=== PATIENT | male | born 1960 | race African-American/Black ===

== ENCOUNTER 2020-12-30 08:39 | Outpatient (REF) | payer OTHER, SELFPAY ==
[2020-12-30 10:24] LABS: Alanine Aminotransferase 12 U/L (0-40); Albumin Level 4.4 g/dL (3.5-5.0); Alkaline Phosphatase 42 U/L (39-117); Anion Gap 11 (12-20); Aspartate Amino Transferase 20 U/L (5-37); Bilirubin Total 0.8 mg/dL (0.0-1.0); Blood Urea Nitrogen 14 mg/dL (9-16); Calcium 9.9 mg/dL (8.4-10.2); Carbon Dioxide 29 mmol/L (22-29); Chloride 106 mmol/L (96-108); Cholesterol 164 mg/dL; Estimated Glomerular Filt Rate > 60; Glucose Fasting 91 mg/dL (60-99); HDL Cholesterol 46 mg/dL; LDL Cholesterol Calculated 100 mg/dl; Potassium 4.2 mmol/L (3.3-5.1); Sodium 142 mmol/L (135-145); Total Protein 6.8 g/dL (6.5-8.0); Triglycerides 91 mg/dL
[2021-01-04 13:32] LABS: Vitamin D 25-OH, D2 <4 ng/mL; Vitamin D 25-OH, D3 28 ng/mL; Vitamin D 25-OH, Total 28 ng/mL (30-100)
== END 2020-12-30 08:40 | disposition home or self-care (01) ==
LOC: HO.LAB 08:39
PROVIDERS: PCP Internal Medicine; Visit Provider Internal Medicine
DX: I10 Essential (primary) hypertension (principal); E78.5 Hyperlipidemia, unspecified; E55.9 Vitamin D deficiency, unspecified
CPT/HCPCS: 36415; 80053; 80061; 82306

== ENCOUNTER 2021-01-13 14:18 | Outpatient (REF) | payer OTHER, SELFPAY ==
--- NOTE | ~2021-01-13 | MM_ITS ---
EXAMINATION: MM DIAGNOSTIC DIGITAL BREAST TOMOSYNTHESIS, BILATERAL US DIAGNOSTIC ULTRASOUND BREAST (AXILLA), LEFT CLINICAL INFORMATION: 60-year-old male with small superficial palpable nodule left axilla. COMPARISON: None (current study represents initial baseline exam). TECHNIQUE: Digital breast tomosynthesis is performed in both the craniocaudal and mediolateral oblique views along with computer-aided detection (CAD). Synthesized 2D images are generated from the tomosynthesis. Additional left MLO view is provided. Ultrasound left breast/axilla is targeted to the area of clinical concern. Patient is able to point to the area at time of imaging. Grayscale imaging and color Doppler are performed without and with harmonics. FINDINGS: The breasts are almost entirely fatty (ACR BI-RADS breast composition Category a). The stromal markings are unremarkable. No gynecomastia, mass, or architectural abnormality. No skin thickening or abnormal calcifications. There is a symptom marker at site of clinical concern, corresponding to the left axilla approximately 14 cm from the nipple. The additional MLO view with symptom marker demonstrates a small superficial smooth nodule approximately 5 x 9 mm in size. Ultrasound targeted to the palpable area of concern demonstrates a smooth oval intradermal lesion measuring approximately 0.5 x 0.9 cm. There is no appreciable visible stalk to the skin surface. No subdermal extension. No associated color flow or surrounding hyperemia. Lymph node left axilla demonstrates normal reji architecture with no cortical thickening or abnormal color flow. There is no edema tracking in the soft tissue planes. Results are discussed with the patient at time of visit. The palpable finding is an intradermal lesion most likely sebaceous cyst or other epidermal cyst. This would be amenable to surgical excision if persistent or enlarging. MM/MM tomosynthesis diagnostic BI IMPRESSION: 1. Intradermal lesion left axilla 5 x 9 mm corresponding to area of palpable concern, likely sebaceous cyst or other epidermal cyst. 2. Normal mammography. No gynecomastia or focal lesion breasts. ASSESSMENT: BI-RADS 2: Benign RECOMMENDATION: Patient should be managed based on the clinical impression. If the intradermal lesion is persistent or enlarging, surgical consult may be considered for simple excision.
== END 2021-01-13 14:19 | disposition home or self-care (01) ==
LOC: HO.MAMMO 14:18
PROVIDERS: Visit Provider Internal Medicine
DX: R22.32 Localized swelling, mass and lump, left upper limb (principal)
CPT/HCPCS: 76642; 77062; 77066

== ENCOUNTER → 2022-05-04 08:23 | Outpatient (BNVA) | payer OTHER, SELFPAY | PROVIDERS: PCP Internal Medicine; Visit Provider Surgery | DX: R22.32 Localized swelling, mass and lump, left upper limb (principal); F17.210 Nicotine dependence, cigarettes, uncomplicated | CPT/HCPCS: 99202 ==

== ENCOUNTER → 2022-05-21 07:56 | Outpatient (BNVA) | payer OTHER, SELFPAY | PROVIDERS: PCP Internal Medicine; Referring Provider Internal Medicine; Visit Provider Surgery | DX: L72.3 Sebaceous cyst (principal) | CPT/HCPCS: 11401; 99212 ==

== ENCOUNTER 2022-06-06 11:24 | Emergency (ER) | payer OTHER, SELFPAY ==
[2022-06-06 12:04] VITALS: BP 150/103; PULSE 89; RESP 18; TEMP 36.6; O2SAT 96; BMI 22.1
--- NOTE | 2022-06-06 12:09 | ED.ALLEREA ---
HPI - Allergic Reaction General Chief complaint: General Medical Stated complaint: Rash/Allergic reaction? Time Seen by Provider: 06/06/22 12:15 Source: patient Mode of arrival: ambulatory Limitations: no limitations History of Present Illness HPI narrative: 61-year-old male with a past medical history of depression is presenting to the ED with complaints of right facial redness/swelling that started yesterday worse today. He reports that it is very itchy and he has noticed some clear/yellow colored drainage from the site of his right face. Reports that he is also having a rash to his right upper arm that is also new since this right facial redness/swelling started. He reports that he did shave last week. He did not use anyone shaver and did not use any dirty Arron. He reports his significant other also recently dyed her hair and he is unsure if this is related. He denies any new substances himself. He denies any fevers, trouble swallowing or breathing, changes in vision or pain with movement of the eyes or ever having this rash before any other symptoms complaints or concerns at this time. MD complaint: facial swelling Onset (ago): day(s) (2) Exposure: unknown Symptoms: rash, itching and facial swelling Severity: mild Treatment prior to arrival: none Previous Allergic Reaction History: none Related Data Previous Rx's Medication Instructions Recorded cholecalciferol (vitamin D3) 25 25 mcg PO DAILY 90 days #90 caps 04/27/21 mcg (1,000 unit) capsule cephalexin 500 mg capsule 500 mg PO Q6H 10 days #40 caps 06/06/22 doxycycline monohydrate 100 mg 100 mg PO BID 10 days #20 tabs 06/06/22 tablet hydrocortisone 2.5 % topical 1 appl topical QD-TID PRN skin 06/06/22 ointment irritation #454 grams mupirocin 2 % topical ointment 1 appl topical TID #22 grams 06/06/22 prednisone 20 mg tablet 40 mg PO DAILY inflammation 5 days 06/06/22 #10 tabs Allergies Allergy/AdvReac Type Severity Reaction Status Date / Time acetaminophen [From Percocet] Allergy Intermediate sweats, Verified 05/27/22 10:56 chills, unvoluntary muscle movements oxycodone [From Percocet] Allergy Intermediate sweats, Verified 05/27/22 10:56 chills, unvoluntary muscle movements Review of Systems Review of Systems: Constitutional : No Fever, No Chills , no body aches, no recent illness Head/Face: No facial swelling, No facial redness ENT/Mouth : No oral/throat swelling, No Hoarseness, No Swallowing Difficulty Eyes: No Eye Pain, No Swelling, No Redness Cardiovascular : No Chest Pain, No SOB, No palpitations Respiratory : No Cough, No Sputum, No Wheezing, No Smoke Exposure, No Dyspnea Gastrointestinal : No Nausea, No Vomiting, No Diarrhea, No abdominal Pain Genitourinary : No Dysuria, No Urinary Frequency, No Hematuria Musculoskeletal : No joint pain, No Myalgias, No Joint Swelling Skin : No Skin Lesions, positive rash Neuro : No Weakness, No Numbness, No Headache, No dizziness, No tingling Psych : No Anxiety/Panic, No Depression Heme/Lymph: No Bruising, No Lymphadenopathy Endocrine : No Polyuria, No Polydipsia Denies changes in lotions or detergents. Denies new medications or any changes in medications. Denies drainage from rash. Denies any recent sick contacts or recent travel. Yes all other systems are reviewed and are negative [facility] Past Medical History Attestation statement: The following information was validated with the patient. Source: old records reviewed and nursing notes reviewed Medical History Depression Essential hypertension Hypovitaminosis D Mass of left axilla Surgical History No pertinent past surgical history Family History Family History Mother No problems noted. Father Cancer Social History Social History Housing: House Alcohol intake: current Alcohol intake frequency: a few times a month Alcohol type: beer Patient Tobacco Use Status: Current everyday Tobacco user Tobacco use type: Cigarette Cigarettes Per Day: 4 e-Cigarette/Vaping Use: Never Used Second Hand Smoke Exposure: No Advance Directives: No Advance Directives Information Provided: No service: No Current occupational status: unemployed Cognitive needs: No Hearing needs: No Vision needs: Yes Physical Exam ED Vital Signs: Vital Signs - 24 hr 06/06/22 12:04 Temperature 97.8 F Pulse Rate 89 Respiratory Rate 18 Blood Pressure 150/103 H Pulse Oximetry 96 Oxygen Delivery Method Room Air BMI result Body Mass Index 22.1 vital signs have been reviewed as normal and appeared to be correct. Blood pressure normal. Heart rate normal. Respiration rate normal. Temperature normal. Oxygen saturation normal. Appearance: Alert. Oriented X3. No acute distress. Head: Normal external exam. Normocephalic. Atraumatic. Eyes: PERRLA. EOMI. Conjunctiva and sclera normal. Eyelids normal. Not consistent with orbital cellulitis. ENT: Pharynx normal. Uvula midline. Moist mucous membranes. No lesions/ulcerations or masses noted on the tongue. Normal voice. No trismus noted. No drooling noted. No muffled voice noted. Neck: Normal inspection. Neck supple. FROM. No adenopathy. Thyroid Normal. No tracheal deviation noted. No crepitus is noted. No meningeal signs. No neck mass noted. No signs of trauma noted. CVS: Normal heart rate and rhythm. Respiratory: No respiratory distress. Painless inspiration. Back: Full range of motion noted. Skin: Skin warm and dry. Normal skin color. Normal skin turgor. To the right side of the face patient has soft tissue swelling/erythema/mild serosanguineous drainage possibly consistent with cellulitis versus and a typo versus contact dermatitis. No streaking noted. No drainable abscess noted. To right upper arm patient has erythematous. to right upper arm pt c rash appears like contact dermatitis or eczema no purulent drainage or streaking noted to this rash. No additional rashes/lesions/lacerations noted. Extremities: Extremities exhibit normal range of motion and nontender. Neuro: Oriented X 3. No motor deficit. No sensory deficit. Reflexes normal. Normal steady gait. No focal neuro deficits noted. CN's II-XII intact bilaterally? Course Course Course Narrative: Patient most likely cellulitis/impetigo/contact dermatitis. Therefore will DC home with antibiotics and steroids along with topical steroids and topical antibiotics and instructions return if any new or worsening symptoms. I explained to him to the face he should use a topical antibiotics and the p.o. antibiotics and further arm he should use the topical steroids and the prednisone. He understands agrees with this plan. Discharge Plan Discharge Clinical Impression: Cellulitis of face, Contact dermatitis Patient Disposition: Home, Self-Care Instructions: Contact Dermatitis (ED), Cellulitis (ED) Prescriptions: New doxycycline monohydrate 100 mg tablet 100 mg PO BID 10 Days Qty: 20 0RF cephalexin 500 mg capsule 500 mg PO Q6H 10 Days Qty: 40 0RF prednisone 20 mg tablet 40 mg PO DAILY 5 Days Qty: 10 0RF hydrocortisone 2.5 % ointment 1 appl topical QD-TID PRN (Reason: skin irritation) Qty: 454 0RF mupirocin 2 % ointment 1 appl topical TID Qty: 22 0RF No Action cholecalciferol (vitamin D3) 25 mcg (1,000 unit) capsule 25 mcg PO DAILY 90 Days Qty: 90 3RF Referrals: Blanca Arnold MD [Primary Care Provider] - 2 days Interventions: ED Discharge Assessment Last Done: 06/06/22 12:19
== END 2022-06-06 12:42 | disposition home or self-care (01) ==
LOC: HO.ED 12:20
PROVIDERS: Emergency Provider Emergency Medicine; PCP Internal Medicine
DX: L03.211 Cellulitis of face (principal); L23.9 Allergic contact dermatitis, unspecified cause
CPT/HCPCS: 99282; 99283

== ENCOUNTER 2022-06-15 10:41 | Outpatient (REF) | payer OTHER, SELFPAY ==
--- NOTE | ~2022-06-15 | MM_ITS ---
EXAMINATION: MM DIAGNOSTIC DIGITAL BREAST TOMOSYNTHESIS, BILATERAL CLINICAL INFORMATION: Targeted left breast ultrasound. COMPARISON: Mammography: 01/13/2021. TECHNIQUE: Digital breast tomosynthesis is performed in both the craniocaudal and mediolateral oblique views along with computer-aided detection (CAD). Synthesized 2D images are generated from the tomosynthesis. Targeted left breast ultrasound. FINDINGS: The breasts are almost entirely fatty (ACR BI-RADS breast composition Category a). There are no significant masses, abnormal calcifications, or other abnormalities. Targeted left breast ultrasound did not demonstrate any suspicious cystic or solid masses. No region of abnormal distal sound shadowing. No edematous change within the parenchyma is noted. In the region of scar within the left axilla, there is some postsurgical change seen within the dermis. Results are discussed with the patient at time of visit. MM/MM tomosynthesis diagnostic BI IMPRESSION: No mammographic evidence of malignancy. Postsurgical change. ASSESSMENT: BI-RADS 2: Benign. RECOMMENDATION: Clinical followup.
== END 2022-06-15 10:42 | disposition home or self-care (01) ==
LOC: HO.MAMMO 10:41
PROVIDERS: PCP Internal Medicine; Visit Provider Internal Medicine
DX: R22.32 Localized swelling, mass and lump, left upper limb (principal)
CPT/HCPCS: 76642; 77062; 77066

== ENCOUNTER 2023-09-21 12:09 | Emergency (ER) | payer OTHER, SELFPAY ==
--- NOTE | ~2023-09-21 | XR_ITS ---
EXAMINATION: XR ELBOW, RIGHT CLINICAL INFORMATION: Pain and swelling COMPARISON: None available. TECHNIQUE: AP, lateral, and oblique views of the right elbow. FINDINGS: Swelling identified posterior medial elbow. No fracture or joint effusion. Alignment is anatomic. Joint spaces are maintained. XR/XR elbow RT 2V IMPRESSION: No acute bony pathology. Right elbow soft tissue swelling.
[2023-09-21 12:22] VITALS: BP 158/95; PULSE 78; RESP 20; TEMP 37.1; O2SAT 99; BMI 25.1
--- NOTE | 2023-09-21 12:32 | ED.GENADULT ---
HPI - General Adult General Chief complaint: Skin/Abscess/Foreign Body Stated complaint: Rash on face & elbows Time Seen by Provider: 09/21/23 12:31 Source: patient and family Mode of arrival: ambulatory Limitations: no limitations History of Present Illness HPI narrative: Patient is a 62-year-old male with history of hypertension, depression presenting to the emergency department with complaint of pruritic rash which began overnight. He reports rash is primarily to right elbow, has lesser rash to left elbow, also has rash to right side of his face. He states that he noted a small rash to his abdomen last week. He also feels that he has swelling to his right upper eyelid and notices the swelling in his field of vision. Describes the rash to right elbow as tender. He denies fevers, chills, body aches. States has had similar rashes in the past but has never seen a legal secretary receptionist. Unsure if he came into contact with any new chemicals at work. He did not take any avlk-tgr-oxrhndp medications or use any creams at home for his symptoms. complaint: rash Onset (ago): hour(s) Location: face, abdomen and upper extremity Severity: moderate Quality: other (Tender, pruritic) Exacerbating factors: movement Associated symptoms: denies other symptoms Treatments prior to arrival: none Related Data Previous Rx's Medication Instructions Recorded hydrocortisone 1 % topical cream 1 appl topical TID PRN skin 09/23/22 (Anti-Itch (hydrocortisone)) irritation 30 days #28.4 grams prednisone 20 mg tablet 20 mg PO DAILY #18 tabs 09/21/23 Allergies Allergy/AdvReac Type Severity Reaction Status Date / Time acetaminophen [From Percocet] Allergy Intermediate sweats, Verified 09/23/22 08:14 chills, unvoluntary muscle movements oxycodone [From Percocet] Allergy Intermediate sweats, Verified 09/23/22 08:14 chills, unvoluntary muscle movements Review of Systems Review of Systems: As per HPI. Yes all other systems are reviewed and are negative Constitutional: Constitutional: Reports as per HPI [facility] Past Medical History Medical History Depression Essential hypertension Hypovitaminosis D Mass of left axilla Surgical History No pertinent past surgical history Family History Family History Mother No problems noted. Father Cancer Social History Social History Housing: House Alcohol intake: current Alcohol intake frequency: a few times a month Alcohol type: beer Patient Tobacco Use Status: Current everyday Tobacco user Tobacco use type: Cigarette Cigarettes Per Day: 4 e-Cigarette/Vaping Use: Never Used Second Hand Smoke Exposure: No Advance Directives: No Advance Directives Information Provided: Yes service: No Current occupational status: unemployed Cognitive needs: No Hearing needs: No Vision needs: Yes Physical Exam ED Vital Signs: Vital Signs - 24 hr 09/21/23 12:22 Temperature 98.7 F Pulse Rate 78 Respiratory Rate 20 Blood Pressure 158/95 H Pulse Oximetry 99 Oxygen Delivery Method Room Air BMI result Body Mass Index 25.1 Vital signs have been reviewed and appear to be correct. Blood pressure elevated. Heart rate normal. Respiratory rate normal. Temperature normal. Oxygen saturation normal. Const General: cooperative, healthy appearing and no acute distress Orientation/consciousness: oriented to person, oriented to place, oriented to time and patient oriented x3 Limitations: no limitations HENMT Other: erythematous maculopapular rash to right side of face Head: Yes normocephalic and Yes atraumatic Ears: external ears normal General nose exam: Normal external nose present Face and sinus: Yes face symmetric Mouth: Normal oral and palatal mucosa present, lip normal, tongue normal, oropharynx normal and moist mucous membranes Throat: Yes uvula midline Eyes Eyelids: Yes eyelid abnormality (mild swelling R upper eyelid) Pupils: Equal, round and reactive pupils present Neck Neck: Yes normal visual inspection and Yes supple Resp Effort & Inspection: normal respiratory effort and able to speak in complete sentences Auscultation: clear to auscultation bilaterally Cardio Rate: regular rate Rhythm: regular rhythm Heart sounds: S1 normal heart sound present and S2 normal heart sound present GI Palpation (GI): Soft to palpation and nontender Auscultation: normoactive bowel sounds General: Yes no CVA tenderness Back/Spine/Pelvis Back: no CVA tenderness Skin General skin exam: elasticity normal and turgor normal Rashes: rashes noted (erythematous maculopapular rash draining serous fluid to elbows, face) maculopapular rash bilateral multiple locations Neuro General: oriented to person, oriented to place, oriented to time, patient oriented x3, moves all extremities, no focal motor deficits and CN's II-XI intact bilaterally Cranial nerves: Yes Equal, round and reactive pupils present Cognition (Neuro): normal cognition Extrem Other: erythematous maculopapular rash to bilateral elbows General: Yes full ROM, Yes no pedal edema and Yes no calf tenderness Right upper extremity: elbow/forearm Details: swelling (mild swelling to diffuse elbow), normal ROM and distal pulses intact; no unusual warmth Left upper extremity: elbow/forearm Details: normal ROM and other (erythematous maculopapular rash); no swelling and no unusual warmth Psych Mental Status: mental status grossly normal Affect: normal affect Thought process: Normal thought process present Course Course Course Narrative: This is an RME: Additional HPI, ROS, PE not included below will be deferred to primary provider. This is a 62-year-old male, with no known medical problems, presenting to the emergency department with itchy rash to his upper extremities. Also reporting swelling to his right elbow. And left lower abdomen. Works at a [employer] is unsure if he got to contact with chemicals yesterday. No fevers or chills. Further ER evaluation needed. Plan: Labs, x-ray Medical Decision Making Medical Decision Making MDM Narrative: Patient is a 62-year-old male with history of hypertension, depression presenting to the emergency department with complaint of pruritic rash which began overnight. On exam patient is awake, A+Ox3, BP elevated, VS otherwise WNL, afebrile, normal neurological exam without focal deficits, physical exam findings as above. Given reported symptoms and physical exam findings, initial differential includes contact dermatitis, atopic dermatitis, cellulitis. Less likely secondary syphillis. Not consistent with zoster, viral exanthem, scabies. Do not suspect DRESS, TEN/SJS, necrotizing fasciitis, TTP/DIC, meningococcemia, SSSS. Labs notable for no leukocytosis, mild anemia, normal ESR, slightly elevated CRP, no other significant abnormalities. X-ray notable for soft tissue swelling to right elbow. My interpretation is in agreement with the radiologist's interpretation. Given that patient has full range of motion, do not suspect septic joint. Will treat patient with taper dose of prednisone, advised him to cetirizine, topical unscented emollient cream such as Eucerin or Vanicream. Will refer patient to Dermatology for further evaluation of symptoms. RPR pending, will contact patient with any positive results. Return precautions discussed at bedside. Instructed patient to follow up with his primary care provider. Patient verbalized understanding of and agreement with plan. Differential Diagnosis Differential Diagnoses: The differential diagnosis associated with the presentation includes As per [facility]. Admission/Observation Consideration of admission/observation: Escalation of care including admission/observation considered Patient would have been admitted to the hospital had their work up had any findings where hospital admission was appropriate and their clinical presentation warranted hospital admission. Lab Data [facility] Lab Attestation statement: I reviewed the patient's lab results. As per HPI. 09/21/23 13:08 09/21/23 13:08 Labs: Lab Results 09/21/23 09/21/23 Range/Units 13:07 13:08 WBC 8.8 (4.8-10.8) X10*3/uL RBC 4.06 L (4.60-5.80) X10*6/uL Hgb 13.4 L (14.0-18.0) g/dl Hct 40.6 L (42.0-52.0) % MCV 100.0 H (80.0-98.0) fL MCH 33.0 (27.0-33.0) pg MCHC 33.0 (31.0-36.0) g/dl RDW 12.1 (11.0-16.0) % Plt Count 295 (160-400) X10*3/uL MPV 8.9 L (9.4-12.4) fL Immature Gran % (Auto) 0.3 (0.0-0.4) % Neut % (Auto) 69.9 (45-73) % Lymph % (Auto) 15.8 L (20-40) % Baca % (Auto) 12.6 H (2-11) % Eos % (Auto) 1.1 (0-4) % Baso % (Auto) 0.3 (0-2) % Lymph # (Auto) 1.4 (1.2-4.9) X10*3/uL [place] # (Auto) 1.1 (0.1-1.2) X10*3/uL Eos # (Auto) 0.1 (0.0-0.4) X10*3/uL Baso # (Auto) 0.0 (0.0-0.2) X10*3/uL Abs Immat Gran (auto) 0.03 (0.00-0.03) X10*3/uL Absolute Neuts (auto) 6.2 (2.0-8.3) x10*3/uL Absolute Nucleated RBC 0.000 (0.0-0.012) X10*3/uL Nucleated RBC % (auto) 0.0 (0.0-0.2) /100WBC ESR 7 (0-15) MM/HR Sodium 142 (135-145) mmol/L Potassium 3.9 (3.3-5.1) mmol/L Chloride 108 (96-108) mmol/L Carbon Dioxide 27 (22-29) mmol/L Anion Gap 11 L (12-20) BUN 10 (9-16) mg/dL Creatinine 0.73 (0.5-1.4) mg/dL Estim Creat Clear Calc 106.2 Estimated GFR > 60 Random Glucose 87 (60-115) mg/dL Calcium 9.7 (8.4-10.2) mg/dL Total Bilirubin 1.1 H (0.0-1.0) mg/dL Direct Bilirubin 0.4 (0.0-0.5) mg/dL AST 18 (5-37) U/L ALT 11 (0-40) U/L Alkaline Phosphatase 50 (39-117) U/L C-Reactive Protein 3.20 H (< or = 0.50) mg/dL Total Protein 7.3 (6.5-8.0) g/dL Albumin 4.4 (3.5-5.0) g/dL Independent Interpretation I performed an independent interpretation of an: Plain X-Ray Interpretation: Soft tissue swelling R elbow Radiology Impression Discussion of test interpretation with radiology: I have reviewed the radiologist's reading. Radiologist Impression: XR/XR elbow RT 2V IMPRESSION: No acute bony pathology. Right elbow soft tissue swelling. External Record Review External record reviewed: Inpatient record, Office record and Outpatient record Prescription Management I considered prescription management with: Other Discharge Plan Discharge Clinical Impression: Rash and nonspecific skin eruption Patient Disposition: Home, Self-Care Instructions: Contact Dermatitis (DC), Acute Rash (ED) Additional Instructions: You were evaluated in the emergency department today for a rash. You are being treated with a tapering dose of steroids to decrease inflammation. We also recommend that you begin taking an pwvs-[id number]-vzdqptr antihistamine such as cetirizine (Zyrtec) daily. You should apply an unscented cream such as Eucerin or Vanicream to the affected areas. You are being referred to Dermatology for further evaluation of your symptoms. Please follow-up with your primary care provider as well. Return to the emergency department if you develop increased redness, swelling, decreased range of motion to your elbow, fever 100.4? F or greater or any other concerning symptoms. Some blood tests are still pending, you will be contacted with any positive results. Prescriptions: New prednisone 20 mg tablet 20 mg PO DAILY Qty: 18 0RF Rx Instructions: Take 3 tabs (60mg) x 3 days, then take 2 tabs (40mg) x 3 days, then take 1 tab (20mg) x 3 days No Action hydrocortisone [Anti-Itch (HC)] 1 % cream 1 appl topical TID PRN (Reason: skin irritation) 30 Days Qty: 28.4 2RF Referrals: [facility] [Provider Group] [facility] [Provider Group] [facility] [[facility]]
[2023-09-21 13:13] LABS: MANUAL DIFF FLAG NO
[2023-09-21 13:15] LABS: Basophils Percent Auto 0.3 % (0-2); Eosinophils Absolute Auto 0.1 X10*3/uL (0.0-0.4); Eosinophils Percent Auto 1.1 % (0-4); Hematocrit 40.6 % (42.0-52.0); Hemoglobin 13.4 g/dl (14.0-18.0); Imm Gran Abs Auto 0.03 X10*3/uL (0.00-0.03); Imm Gran Pct Auto 0.3 % (0.0-0.4); Lymphocytes Absolute Auto 1.4 X10*3/uL (1.2-4.9); Lymphocytes Percent Auto 15.8 % (20-40); Mean Platelet Volume 8.9 fL (9.4-12.4); Monocytes Absolute Auto 1.1 X10*3/uL (0.1-1.2); Monocytes Percent Auto 12.6 % (2-11); Neutrophils Absolute Auto 6.2 x10*3/uL (2.0-8.3); Neutrophils Percent Auto 69.9 % (45-73); Platelet Count 295 X10*3/uL (160-400); Red Blood Count 4.06 X10*6/uL (4.60-5.80); Red Cell Distribution Width 12.1 % (11.0-16.0); White Blood Count 8.8 X10*3/uL (4.8-10.8)
[2023-09-21 13:32] LABS: Alanine Aminotransferase 11 U/L (0-40); Albumin Level 4.4 g/dL (3.5-5.0); Alkaline Phosphatase 50 U/L (39-117); Anion Gap 11 (12-20); Aspartate Amino Transferase 18 U/L (5-37); Bilirubin Direct 0.4 mg/dL (0.0-0.5); Bilirubin Total 1.1 mg/dL (0.0-1.0); Blood Urea Nitrogen 10 mg/dL (9-16); Calcium 9.7 mg/dL (8.4-10.2); Carbon Dioxide 27 mmol/L (22-29); Chloride 108 mmol/L (96-108); Creatinine Clr Calc Pharmacy 106.2; Estimated Glomerular Filt Rate > 60; Glucose Random 87 mg/dL (60-115); Potassium 3.9 mmol/L (3.3-5.1); Sodium 142 mmol/L (135-145); Total Protein 7.3 g/dL (6.5-8.0)
[2023-09-21 14:01] LABS: Erythrocyte Sedimentation Rate 7 MM/HR (0-15)
[2023-09-21] MEDS: predniSONE 20 MG TABLET 60 MG PO (14:58)
[2023-09-21] MEDS: Loratadine 10 MG TABLET PO (14:58)
[2023-09-22 07:19] LABS: Syphilis Screen Nonreactive (Nonreactive)
== END 2023-09-21 15:02 | disposition home or self-care (01) ==
PROVIDERS: Physician Assistant Medical; Emergency Provider Emergency Medicine; PCP Internal Medicine
DX: R21 Rash and other nonspecific skin eruption (principal); I10 Essential (primary) hypertension; Z88.5 Allergy status to narcotic agent
CPT/HCPCS: 36415; 73070; 80048; 80076; 85025; 85652; 86140; 86780; 99281; 99283

== ENCOUNTER 2023-10-01 22:45 | Emergency (ER) | payer OTHER, SELFPAY ==
--- NOTE | ~2023-10-01 | XR_ITS ---
EXAMINATION: XR ELBOW, RIGHT CLINICAL INFORMATION: PAIN AND SWELLING IN RIGHT ELBOW COMPARISON: None available. TECHNIQUE: AP, lateral, and oblique views of the right elbow. FINDINGS: Significant soft tissue swelling around the olecranon. No joint effusion. No focal bone lesion. Joint space is normal. No soft tissue calcification. XR/XR elbow RT 2V IMPRESSION: Significant soft tissue swelling around the olecranon. No acute osseous abnormality.
[2023-10-01 23:02] VITALS: BP 137/78; PULSE 90; RESP 16; TEMP 36.7; O2SAT 99; BMI 25.1
--- NOTE | 2023-10-02 03:09 | ED_ITS ---
HPI - General Adult General Chief complaint: General Medical Stated complaint: swollen right elbow Time Seen by Provider: 10/02/23 03:09 Source: patient Mode of arrival: ambulatory Limitations: no limitations History of Present Illness HPI narrative: Patient has swelling of the right elbow for last 2 weeks was seen here on 09/30 comes here as redness and swelling has got worse for last few days no fever no chills slight redness of the olecranon bursa Related Data Previous Rx's ?Medication ?Instructions ?Recorded hydrocortisone 1 % topical cream 1 appl topical TID PRN skin 09/23/22 (Anti-Itch (hydrocortisone)) irritation 30 days #28.4 grams prednisone 20 mg tablet 20 mg PO DAILY #18 tabs 09/21/23 cephalexin 500 mg capsule 500 mg PO QID 10 days #40 caps 10/02/23 doxycycline hyclate 100 mg tablet 100 mg PO BID #20 tabs 10/02/23 ibuprofen 600 mg tablet 600 mg PO Q6H PRN fever or pain 10/02/23 #30 tabs Allergies Allergy/AdvReac Type Severity Reaction Status Date / Time acetaminophen [From Percocet] Allergy Intermediate sweats, Verified 10/01/23 23:02 chills, unvoluntary muscle movements oxycodone [From Percocet] Allergy Intermediate sweats, Verified 10/01/23 23:02 chills, unvoluntary muscle movements Review of Systems 2 Review of Systems: Yes all other systems are reviewed and are negative [facility] Past Medical History Medical History Hypovitaminosis D Mass of left axilla Depression Essential hypertension Surgical History No pertinent past surgical history Family History Family History Mother No problems noted. Father Cancer Social History Social History Housing: House Alcohol intake: current Alcohol intake frequency: a few times a month Alcohol type: beer Patient Tobacco Use Status: Current everyday Tobacco user Tobacco use type: Cigarette Cigarettes Per Day: 4 e-Cigarette/Vaping Use: Never Used Second Hand Smoke Exposure: No Advance Directives: No Advance Directives Information Provided: No service: No Current occupational status: unemployed Cognitive needs: No Hearing needs: No Vision needs: Yes Physical Exam ED Vital Signs: Vital Signs - 24 hr 10/01/23 23:02 Temperature 98.0 F Pulse Rate 90 Respiratory Rate 16 Blood Pressure 137/78 Pulse Oximetry 99 Oxygen Delivery Method Room Air BMI result Body Mass Index 25.1 Extrem Shoulder/upper arm images: 2 1. Olecranon bursa swelling with slight redness and tenderness with good range of right elbow movement Medical Decision Making Medical Decision Making MDM Narrative: Patient with R olecranon bursitis with slight redness of the skin good range of movement of the elbow joint no joint diffuse likely septic outside clinically patient has olecranon bursitis with surrounding cellulitis bursa was drained using 18 gauge needle and 15 cc of yellowish color fluid was drained which was sent for culture and Gram stain Differential Diagnosis Differential Diagnoses: The differential diagnosis associated with the presentation includes Olecranon bursitis/cellulitis Discharge Plan Discharge Clinical Impression: Olecranon bursitis, right elbow, Cellulitis Patient Disposition: Home, Self-Care Instructions: Cellulitis (ED), Elbow Bursitis (ED) Additional Instructions: Use Justin wrap dressing as advised Take antibiotics for possible infection Rest your right elbow Ibuprofen for pain Prescriptions: New cephalexin 500 mg capsule 500 mg PO QID 10 Days Qty: 40 0RF ibuprofen 600 mg tablet 600 mg PO Q6H PRN (Reason: fever or pain) Qty: 30 0RF doxycycline hyclate 100 mg tablet 100 mg PO BID Qty: 20 0RF No Action prednisone 20 mg tablet 20 mg PO DAILY Qty: 18 0RF Rx Instructions: Take 3 tabs (60mg) x 3 days, then take 2 tabs (40mg) x 3 days, then take 1 tab (20mg) x 3 days hydrocortisone [Anti-Itch (HC)] 1 % cream 1 appl topical TID PRN (Reason: skin irritation) 30 Days Qty: 28.4 2RF Print Language: Telugu
[2023-10-02] MEDS: cephALEXin 500 MG CAPSULE PO (03:46)
[2023-10-02] MEDS: Doxycycline Monohydrate 100 MG CAPSULE PO (03:46)
[2023-10-02 03:57] VITALS: BP 129/80; PULSE 76; RESP 18; TEMP 36.4; O2SAT 98
[2023-10-02 03:59] VITALS: BP 129/80; PULSE 76; RESP 18; TEMP 36.4; O2SAT 98
== END 2023-10-02 03:59 | disposition home or self-care (01) ==
PROVIDERS: Emergency Provider Internal Medicine; PCP Internal Medicine
DX: M70.21 Olecranon bursitis, right elbow (principal); Y93.9 Activity, unspecified; L03.113 Cellulitis of right upper limb; I10 Essential (primary) hypertension
CPT/HCPCS: 20605; 73070; 87070; 87077; 87186; 87205; 99283; 99284

== ENCOUNTER 2023-10-05 13:18 | Outpatient (AMB) | payer OTHER, SELFPAY ==
--- NOTE | 2023-10-05 13:21 | A.OFFPC_ITS ---
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 Accompanied by: christine Allergies acetaminophen [From Percocet] Allergy (Intermediate, Verified 10/05/23 13:39) sweats, chills, unvoluntary muscle movements oxycodone [From Percocet] Allergy (Intermediate, Verified 10/05/23 13:39) sweats, chills, unvoluntary muscle movements Medication List - Last Reconciled 10/05/23 by Blanca Alan MD cephalexin 500 mg PO QID 10 days doxycycline hyclate 100 mg PO BID ibuprofen 600 mg PO Q6H PRN Tobacco use date assessed: 10/05/23 Dental Screening Dental Screen Date: 10/05/23 Did you have a dental visit in the last 12 months?: Yes Did you have a dental problem in the last 6 months where you did not have access to dental care?: No Was dental information given to patient?: Patient has dentist HPI HPI Comments History of Present Illness Details This is a 61-year-old male that comes accompanied by christine for his physical exam. Last colonoscopy was 5 years ago and should have a follow-up colonoscopy and will be refer through open access. This was done in [place] and I do not have the results. He had polyps. Went to ER recently due to right elbow cellulitis and is currently on antibiotics. No chest pain or shortness of breath. Complains of rash and would like to go to an hoe worker. Also has a right eyelid lesion as well as some right eyelid swelling and facial rash and will be referred to Ophthalmology. [facility] Medical History (Updated 10/05/23 @ 13:58 by Blanac Alan MD) Hypovitaminosis D Mass of left axilla Depression Essential hypertension Surgical History No pertinent past surgical history Family History Mother No problems noted. Father Cancer Social History Housing: House Alcohol intake: current Alcohol intake frequency: a few times a month Alcohol type: beer Patient Tobacco Use Status: Current everyday Tobacco user Tobacco use type: Cigarette Cigarettes Per Day: 4 e-Cigarette/Vaping Use: Never Used Second Hand Smoke Exposure: No service: No Current occupational status: unemployed Cognitive needs: No Hearing needs: No Vision needs: Yes Questionnaire PHQ-9 Over the last 2 weeks, how often have you been bothered by any of the following problems? 1. Little interest or pleasure in doing things: not at all 2. Feeling down, depressed, or hopeless: not at all 3. Trouble falling or staying asleep, or sleeping too much: not at all 4. Feeling tired or having little energy: not at all 5. Poor appetite or overeating: not at all 6. Feeling bad about yourself - or that you are a failure or have let yourself or your family down: not at all 7. Trouble concentrating on things, such as reading the newspaper or watching television: not at all 8. Moving or speaking so slowly that other people could have noticed. Or the opposite - being so fidgety or restless that you have been moving around a lot more than usual: not at all 9. Thoughts that you would be better off or of hurting yourself in some way: not at all Total score: 0 Depression Screening Interpretation: Negative Depression Screening Done: Yes 86432 - PHQ-9 Billing: Yes Source: Developed by Drs. Roldan Hinds, Danna Solo, Fernando Malave and colleagues, with an educational ashley from [employer] Thrive Questionnaire Date Thrive assessed: 10/05/23 I am a: Patient What is your living situation today?: I have a steady place to live Within the past 12 months, did the food you bought not last and you didn't have the money to get more?: Never true Within the past 12 months, did you worry whether your food would run out before you got money to buy more?: Never true Do you have trouble paying for medicines?: No Do you have trouble getting transportation to medical appointments?: No Do you have trouble paying your heating and electricity bill?: No Do you have trouble taking care of your child, family member or friend?: No Do you have trouble with day-to-day activities such as bathing, preparing meals, shopping, managing finances, etc.?: No Are you currently unemployed and looking for a job?: No Are you interested in more education?: No Please select the resources that you would like help with: None Currently or been in a relationship where the following occur: no concerns reported THRIVE Score: 0 AUDIT C Alcohol Use Questionnaire (AUDIT-C) 1. How often do you have a drink containing alcohol?: 2-4 times a month 2. How many drinks containing alcohol do you have on a typical day when you are drinking?: 1 or 2 3. How often do you have six or more drinks on one occasion?: Never Total Score: 2 GONSALO-7 AMB Questionnaire GONSALO-7 Date GONSALO - 7 assessed: 10/05/23 Feeling nervous, anxious, or on edge: 0 = Not at all Not being able to stop or control worryin = Not at all Worrying too much about different things: 0 = Not at all Trouble relaxin = Not at all Being so restless that it is hard to sit still: 0 = Not at all Becoming easily annoyed or irritable: 0 = Not at all Feeling afraid as if something awful might happen: 0 = Not at all Total GONSALO-7 score (0-4 normal; 5-9 mild; 10-14 moderate; 15-21 severe): 0 Source: Developed by Drs. Roldan Hinds, Danna Solo, Fernando Malave and colleagues, with an educational ashley from [employer] GONSALO-7 Assessment Billing GONSALO-7 Assessment Tool: GONSALO-7 Assessment 73250 Review of Systems Const All systems reviewed & are unremarkable except as noted in HPI and below Eyes Reports no additional complaints, Denies change in vision and Denies other visual disturbances Card Denies chest pain at rest, Denies chest pain with activity, Denies edema, Denies irregular heart rhythm, Denies claudication, Denies dyspnea, Denies dyspnea on exertion, Denies orthopnea, Denies paroxysmal nocturnal dyspnea and Denies slow heart rate Resp Denies cough, Denies dyspnea and Denies dyspnea on exertion GI Denies abdominal pain, Denies change in bowel habits, Denies excessive flatus, Denies nausea and Denies vomiting Musc Denies atrophy, Denies deformity and Denies limited range of motion Physical exam (Primary Care) Vital Signs: Last Vital Signs BP 130/72 10/05/23 13:22 BMI result Body Mass Index 24.7 Tobacco/Smoking Status: Tobacco use Status Tobacco use date assessed 10/05/23 10/05/23 13:29 Patient Tobacco Use Status Current everyday Tobacco 10/05/23 13:29 Tobacco use type Cigarette 10/05/23 13:29 e-Cigarette/Vaping Use Never Used 10/05/23 13:29 Relapse Prevention: discussed the importance of a supportive environment, discussed extending NRT, discussed negative mood or depression after quitting and weight gain after smoking is common Number of minutes spent counselin CPT code: Less than 3 minutes PHQ-9: PHQ-9 Score PHQ-9: Total score 0 10/05/23 13:40 Depression Screening Interpretation: Negative Thrive Assessment: Date of Thrive Assessment Date Thrive assessed 10/05/23 10/05/23 13:29 Currently or been in a relationship where the following occur: no concerns reported Const General: cooperative Orientation/consciousness: patient oriented x3 HENMT Head: Yes normal to inspection, Yes normocephalic and Yes atraumatic Ears: external ears normal Eyes General: appearance normal, both eyes and all related structures Eyelids: Yes eyelids normal Conjunctivae: conjunctivae normal Neck Neck: Yes normal visual inspection and Yes supple Resp Effort & Inspection: normal respiratory effort Auscultation: clear to auscultation bilaterally Cardio Jugular venous distension: no JVD Rate: regular rate Rhythm: regular rhythm Heart sounds: S1 normal heart sound present and S2 normal heart sound present GI Inspection: Yes normal to inspection Palpation (GI): Soft to palpation and nontender Auscultation: normal bowel sounds Skin Other: Right elbow redness and swelling secondary to cellulitis. Maculopapular pruritic rash in abdomen and right lower leg. Neuro General: patient oriented x3 and no focal motor deficits Extrem General: Yes full ROM Psych Appearance: grossly normal Assessment and Plan Assessment & Plan (1) Encounter for physical examination: Code(s): Z00.00 - Encounter for general adult medical examination without abnormal findings Plan: Repeat in a year. Orders: Orders Vitamin D 25-OH Total Today E55.9 - Vitamin D deficiency, unspecified Lipid Panel Today E78.5 - Hyperlipidemia, unspecified Referrals Open Access Screening Colonoscopy Referral Z12.11 - Encounter for screening for malignant neoplasm of colon Ophthalmology Referral H02.9 - Unspecified disorder of eyelid Allergy & Immunology Referral R21 - Rash and other nonspecific skin eruption Medications: New cetirizine (All Day Allergy (cetirizine)) 10 mg PO DAILY PRN 90 tabs 0RF allergy symptoms 90 days R21 - Rash and other nonspecific skin eruption Coding Level of Care Code Est Pt Prev Care 40-64y(34289) Diagnoses Encounter for physical examination Z00.00 Additional Codes GONSALO-7 Assessment Billing - GONSALO-7 Assessment Tool: GONSALO-7 Assessment 17476 ([id number]) Time Spent (min) 32
[2023-10-05 13:22] VITALS: BP 130/72; BMI 24.7
== END 2023-10-05 14:01 | disposition home or self-care (01) ==
PROVIDERS: PCP Internal Medicine; Visit Provider Internal Medicine
DX: Z00.00 Encounter for general adult medical examination without abnormal findings (principal)
CPT/HCPCS: 99396

== ENCOUNTER 2023-10-06 11:26 | Outpatient (REF) | payer OTHER, SELFPAY ==
[2023-10-06 12:24] LABS: Alanine Aminotransferase 15 U/L (0-40); Albumin Level 4.2 g/dL (3.5-5.0); Alkaline Phosphatase 55 U/L (39-117); Anion Gap 9 (12-20); Aspartate Amino Transferase 22 U/L (5-37); Bilirubin Total 0.9 mg/dL (0.0-1.0); Blood Urea Nitrogen 14 mg/dL (9-16); Calcium 9.5 mg/dL (8.4-10.2); Carbon Dioxide 30 mmol/L (22-29); Chloride 109 mmol/L (96-108); Cholesterol 173 mg/dL (<200); Estimated Glomerular Filt Rate > 60; Glucose Fasting 91 mg/dL (60-99); HDL Cholesterol 54 mg/dL (>40); LDL Cholesterol Calculated 111 mg/dL (<100); Potassium 4.2 mmol/L (3.3-5.1); Sodium 144 mmol/L (135-145); Total Protein 7.1 g/dL (6.5-8.0); Triglycerides 42 mg/dL (<150)
[2023-10-06 12:41] LABS: Vitamin D 25-OH Total 18.5 ng/mL (>30)
== END 2023-10-06 11:27 | disposition home or self-care (01) ==
LOC: HO.LAB 11:26
PROVIDERS: PCP Internal Medicine; Visit Provider Internal Medicine
DX: R21 Rash and other nonspecific skin eruption (principal); E78.5 Hyperlipidemia, unspecified; E55.9 Vitamin D deficiency, unspecified
CPT/HCPCS: 36415; 80053; 80061; 82306